=== PATIENT | male | born 1940 | race Caucasian/White ===

== ENCOUNTER → 2020-09-05 | Outpatient (CLI) | payer MEDICARE, BC ==
[2015-03-21 10:40] VITALS: BP 138/66
[~2020-09-05] MED LIST: ASPI-630 PO; BIMA2.5D EACHEYE; CIPR500T94 PO; DORZ10DR7 EACHEYE; GADOTERATE 7.5 MMOL/15ML VIAL. IVP ONE; TAMS0.4C2 PO
--- NOTE | 2020-09-05 11:05 | KCIC ---
MRI BRAIN WO+W Date: 09/05/2020 9:00 AM Indication: DIZZINESS / Spl. 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 / H istory: Dizziness and vertigo since July, no trauma. Comparison: None. Technique: Multiplanar multisequence MRI of the brain was performed with and without intravenous cont rast using the standard protocol. 14 cc Clariscan contrast was administered intravenously during the exam. Findings: No acute infarct. No acute hemorrhage. The ventricles are normal in size and configuration without hy drocephalus. Mild scattered FLAIR hyperintensities in the subcortical and periventricular deep white matter, a nonspecific finding, most commonly seen with chronic small vessel ischemic disease. Mild ge neralized cerebral volume loss. Right parietal focus of gradient susceptibility, likely chronic micro hemorrhage or cavernoma. The scalp and calvarium are normal. The pituitary and sella are normal. No Chiari malformation. Mild incompletely characterized degenerative spondylosis of the visualized upper cervical spine. The visualized orbits and globes are normal. The visualized paranasal sinuses are clear. The mastoid air cells are clear. Normal flow voids within the vertebral, basilar, and internal carotid arteries indicating patency. IMPRESSION: 1. No acute infarct or hemorrhage. No mass or abnormal enhancement. 2. Mild chronic small vessel ischemic disease and mild cerebral volume loss. Electronically signed by: Abhishek Alvarado MD (09/05/2020 11:03 AM) [id number]
== END ==
LOC: KCIC MRI 08:27
PROVIDERS: ATTEND Family Medicine
DX: R42 Dizziness and giddiness (principal)
CPT/HCPCS: 70553; A9575